=== PATIENT | female | born 1995 | race Caucasian/White ===

== ENCOUNTER 2020-09-17 01:06 | Emergency (ER) | payer MEDICAID ==
[~2020-09-17] VITALS: Ht 165.1 cm; Wt 48.5 kg
[2020-09-17] MEDS ORDERED: METO-295 PO (01:21)
--- NOTE | 2020-09-17 01:29 | NUR ---
Dr. Bruno at bedside for MSE.
[2020-09-17 01:40] LABS: *BILIRUBIN,URIN NEGATIVE (NEGATIVE); *CLARITY,URINE SLIGHTLY CLOUDY (CLEAR); *COLOR,URINE YELLOW (YELLOW); *KETONES,URINE NEGATIVE (NEGATIVE); *UROBILINOGEN,URINE 0.2 E.U./dl (NORMAL); LEUKOCYTE ESTERASE ,URINE 1+ (NEGATIVE); NITRITE, URINE POSITIVE (NEGATIVE); UGLUCOSE NEGATIVE (NEGATIVE)
[2020-09-17 01:41] LABS: *BLOOD, URINE TRACE (NEGATIVE)
[2020-09-17 01:43] LABS: BACTERIA,URINE MODERATE /HPF (NONE SEEN); MUCUS,URINE FEW /LPF (0-FEW); SQUAMOUS EPITHELIAL CELL,UR FEW /HPF (NONE SEEN); URINE AMORPHOUS URATE MANY /HPF
[2020-09-17] MEDS ORDERED: CLOT21CR12 VG (01:43)
[2020-09-17] MEDS ORDERED: METRONIDAZOLE 500 MG TABLET PO ONE (01:45)
[2020-09-17] MEDS ORDERED: AZITHROMYCIN 250 MG TABLET ONE (01:45)
[2020-09-17] MEDS ORDERED: METRONIDAZOLE 500 MG TABLET ONE (01:45)
[2020-09-17] MEDS ORDERED: CEFTRIAXONE 500 MG VIAL IM ONE (01:45)
[2020-09-17] MEDS ORDERED: AZITHROMYCIN 250 MG TABLET PO ONE (01:45)
[2020-09-17] MEDS ORDERED: CEFTRIAXONE 500 MG VIAL ONE (01:46)
[2020-09-17] MEDS ORDERED: LIDOCAINE HCL 1% 20 ML VIAL ONE (01:46)
[2020-09-17] MEDS ORDERED: NITR100C11 PO (02:14)
[2020-09-17] MEDS ORDERED: NITROFURANTOIN/NITROFURAN MAC 100 MG CAPSULE PO ONE ×2 (02:15→02:25)
--- NOTE | 2020-09-17 02:24 | NUR ---
Patient discharged to home in stable condition. Written and verbal after care instructions given. Patient verbalizes understanding of instructions. Stressed follow up or return to ER for worsening s/s. Patient out of ER with steady gait, no acute signs of distress, VSS, all belongings taken, provided with copies of lab results.
[2020-09-17 02:25] VITALS: BP 114/59
== END 2020-09-17 02:25 | disposition home or self-care (01) ==
LOC: ER 01:13
DX: O23.41 Unspecified infection of urinary tract in pregnancy, first trimester (principal); Z3A.09 9 weeks gestation of pregnancy; O23.591 Infection of other part of genital tract in pregnancy, first trimester; N76.0 Acute vaginitis
CPT/HCPCS: 81001; 87086; 87491; 96372; 99284; J0696; J3490; A4663; Q0144